=== PATIENT | male | born 1995 | race Caucasian/White ===

== ENCOUNTER 2018-07-05 11:11 | Emergency (ER) | payer OTHER ==
--- OUTSIDE RECORDS SUMMARY | 2018-07-05 11:13 | XMS REPORT | Clinical Summary ---
:1995 Author Organization [facility] Address [address] [place] [address] Care Team Providers Name Role Phone Tank Joy MD Primary Care Provider Allergies No Known Allergies Current Medications No known medications Active Problems Not on file Social History Tobacco Use Types Packs/Day Years Used Date Unknown If Ever Smoked Alcohol Use Drinks/Week oz/Week Comments Defer Sex Assigned at Date Recorded Not on file Last Filed Vital Signs Not on file Plan of Treatment Health Maintenance Due Date Last Done Comments INFLUENZA VACCINE 06/11/2018 Results Not on fileafter 07/04/2017 Insurance Payer Benefit Plan / Group Subscriber ID Type Phone Address AETNA AETNA HMO,POS,EPO, MC/EC xxxxxxxxx HMO Home: [address] [facility] [phone] [place], [place] [phone]
[2018-07-05 15:21] LABS: Urine Blood NEGATIVE (NEG); Urine Glucose NEGATIVE (NEG); Urine Protein NEGATIVE (NEG)
[2018-07-05 15:26] LABS: Absolute Lymphocytes (CBC) 1.4 K/uL (0.7-4.9); Absolute Monocytes 0.8 K/uL (0.1-1.3); Absolute Neutrophil 9.2 K/uL (1.8-8.0); Basophils % 0.4 % (0-1.3); Eosinophils % 0.9 % (0-4.4); Hematocrit 44.8 % (39.6-49.0); Lymphocytes % 11.9 % (15.3-44.8); MCH 30.1 pg (27.0-35.0); MCV 89.3 fL (80-100); MPV 8.8 fL (7.6-11.3); RBC Red Blood Cell Count 5.02 M/uL (4.33-5.43)
[2018-07-05 15:33] LABS: Protime INR 1.03
[2018-07-05 15:48] LABS: ALT/SGPT 41 U/L (12-78); AST/SGOT 23 U/L (15-37); Albumin 4.1 g/dL (3.4-5.0); Alkaline Phosphatase 76 U/L (45-117); BUN Blood Urea Nitrogen 11 mg/dL (7-18); Bicarbonate 30 mmol/L (21-32); Bilirubin Direct < 0.1 mg/dL (0-0.2); Bilirubin Total 0.3 mg/dL (0.2-1.0); CKMB Creatine Kinase MB < 1.0 ng/mL (0.3-3.6); Creatine Phosphokinase 160 U/L (39-308); Glucose Level 97 mg/dL (74-106); Magnesium 2.1 mg/dL (1.8-2.4); NT PRO-BNP 64 pg/mL (<125); Potassium 3.4 mmol/L (3.5-5.1); Protein, Total 7.8 g/dL (6.4-8.2); Sodium Level 141 mmol/L (136-145)
--- NOTE | 2018-07-05 16:14 | RAD REPORT ---
EXAM DESCRIPTION: Jc Single View07/05/2018 3:45 pm CLINICAL HISTORY: Chest pain COMPARISON: 2012 FINDINGS: The lungs appear clear of acute infiltrate. A 10 millimeter lingular nodule is unchanged. The heart is normal size IMPRESSION: No acute abnormalities displayed
[2018-07-05] MEDS ORDERED: KETOROLAC 30 MG/ML INJ ONE (17:01)
[2018-07-05] MEDS ORDERED: MAGNE/ALUM HYDROXD 30 ML UCUP ONE (17:17)
[2018-07-05] MEDS ORDERED: LIDOCAINE VISCOUS 2% SOLN 15 ML UDC ONE (17:17)
--- NOTE | 2018-07-05 17:34 | ER ---
Nurse's Notes [facility] Name: Farhat Ward Age: 22 yrs Sex: Male : 1995 Arrival Date: 07/05/2018 Time: 11:15 Bed 20 Private MD: Tank Joy Diagnosis: Pericarditis in diseases classified elsewhere Presentation: 07/05 11:20 Presenting complaint: Patient states: "since I woke up this morning, I've been having ss chest pain.". Transition of care: patient was not received from another setting of care. Onset of symptoms was July 05, 2018. Risk Assessment: Do you want to hurt yourself or someone else? Patient reports no desire to harm self or others. Initial Sepsis Screen: Does the patient meet any 2 criteria? No. Patient's initial sepsis screen is negative. Does the patient have a suspected source of infection? No. Patient's initial sepsis screen is negative. Note chest pain is worse when taking a deep breath. Care prior to arrival: None. 11:20 Method Of Arrival: Ambulatory ss 11:20 Acuity: XAVIER 3 ss Historical: - Allergies: 11:21 No Known Allergies; ss - Home Meds: 11:21 pantoprazole Oral [Active]; ss - PMHx: 11:21 GERD; ss - PSHx: 11:21 None; ss - Immunization history:: Adult Immunizations up to date. - Social history:: Smoking status: Patient uses tobacco products, chewing tobacco. - Ebola Screening: : Patient denies exposure to infectious person Patient denies travel to an Ebola-affected area in the 21 days before illness onset. Screenin:35 Abuse screen: Denies threats or abuse. Nutritional screening: No deficits noted. rb1 Tuberculosis screening: No symptoms or risk factors identified. Fall Risk None identified. Assessment: 14:35 General: Appears in no apparent distress. comfortable, Behavior is calm, cooperative, rb1 Denies fever. Pain: Complains of pain in chest Pain radiates to back Pain currently is 8 out of 10 on a pain scale. Pain began 0230 this morning. Neuro: Level of Consciousness is awake, alert, obeys commands, Oriented to person, place, time, situation. Cardiovascular: Capillary refill < 3 seconds is brisk in bilateral fingers Rhythm is sinus rhythm. Respiratory: Airway is patent Respiratory effort is even, unlabored, Respiratory pattern is regular, symmetrical. GI: No signs and/or symptoms were reported involving the gastrointestinal system. : No signs and/or symptoms were reported regarding the genitourinary system. Derm: Skin is pink, warm \\T\\ dry. 15:35 Reassessment: Patient appears in no apparent distress at this time. No changes from rb1 previously documented assessment. 16:35 Reassessment: Patient appears in no apparent distress at this time. Patient and/or rb1 family updated on plan of care and expected duration. Pain level reassessed. Patient is alert, oriented x 3, equal unlabored respirations, skin warm/dry/pink. Pt. is watching TV. Call light within reach. 17:30 Reassessment: Patient appears in no apparent distress at this time. No changes from rb1 previously documented assessment. Vital Signs: 11:21 BP 147 / 88; Pulse 93; Resp 15; Temp 98.4(O); Pulse Ox 99% on R/A; Weight 99.79 kg; ss Height 6 ft. 3 in. (190.50 cm); Pain 8/10; 14:38 BP 129 / 75; Pulse 86; Resp 20; Pulse Ox 100% on R/A; Pain 8/10; rb1 15:37 BP 131 / 61; Pulse 90; Resp 20; Pulse Ox 100% on R/A; rb1 16:35 BP 122 / 63; Pulse 87; Resp 15; Pulse Ox 100% on R/A; rb1 17:35 BP 110 / 59; Pulse 88; Resp 17; Pulse Ox 100% on R/A; Pain 5/10; rb1 11:21 Body Mass Index 27.50 (99.79 kg, 190.50 cm) ED Course: 11:15 Patient arrived in ED. sb2 11:15 Tank Joy MD is Private Physician. sb2 11:21 Triage completed. ss 11:21 Arm band placed on right wrist. ss 11:26 EKG done, by ED staff. jp3 14:30 Milton Dickson PA is PHCP. jmm 14:30 Merlin Argueta MD is Attending Physician. m 14:32 Adwoa Morris, RN is Primary Nurse. rb1 14:35 Patient has correct armband on for positive identification. Placed in gown. Bed in low rb1 position. Call light in reach. Side rails up X 1. cream dumper on. Pulse ox on. NIBP on. 14:35 Patient maintains SpO2 saturation greater than 95% on room air. rb1 14:47 Inserted saline lock: 20 gauge in right antecubital area, using aseptic technique. 3 Blood collected. 15:15 Initial lab(s) drawn, by ri, sent to lab. [facility] 15:45 XRAY Chest (1 view) In Process Unspecified. EDMS 17:32 Howard Hamilton MD is Referral Physician. [facility] 17:59 No provider procedures requiring assistance completed. IV discontinued, intact, rb1 bleeding controlled, No redness/swelling at site. Pressure dressing applied. Administered Medications: 16:50 Drug: GI Cocktail without - (Maalox Suspension 30 ml, Lidocaine Liquid 2 % 15 rb1 ml) Route: PO; 17:15 Follow up: Response: No adverse reaction; Pain is decreased rb1 17:44 Drug: Ketorolac 30 mg Route: IVP; Site: right antecubital; rb1 18:00 Follow up: Response: No adverse reaction; Pain is decreased [facility] Outcome: 17:33 Discharge ordered by . [facility] 17:59 Patient left the ED. rb1 17:59 Discharged to home ambulatory. rb1 17:59 Condition: stable 17:59 Discharge instructions given to patient, Instructed on discharge instructions, follow up and referral plans. medication usage, Demonstrated understanding of instructions, follow-up care, medications, Prescriptions given X 1. Signatures: Dispatcher [employer] EDMS Milton Dickson PA PA jmm Smirch, Shelby, RN RN Adwoa Morris, RN RN [facility] Airam Sampson 3 Hailey Castillo2 Lamont Rahman 3
--- NOTE | 2018-07-05 17:34 | EDPHYS ---
Physician Documentation [facility] Name: Farhat Ward Age: 22 yrs Sex: Male : 1995 Arrival Date: 07/05/2018 Time: 11:15 Bed 20 Private MD: Tank Joy ED Physician Merlin Argueta HPI: 07/05 15:03 This 22 yrs old Male presents to ER via Ambulatory with complaints of Chest jmm Pain. 15:03 The patient or guardian reports chest pain that is located primarily in the substernal jmm area. The pain radiates to across chest. Associated signs and symptoms: Pertinent negatives: shortness of breath. The chest pain is described as sharp. Duration: The patient or guardian reports a single episode, that is still ongoing. This is a 22 year old male with a history of GERD that presents to the ED with substernal chest pain described as sharp. Symptoms began at approx 0200 which awoke him from sleep. Pain has been constant. Patient denies recent fever, cough, or congestion. Patient denies recreational drug use, denies recent travel, surgery, leg swelling hemoptysis, unilateral leg swelling, hx of cancer or PE/DVT. . Historical: - Allergies: 11:21 No Known Allergies; ss - Home Meds: 11:21 pantoprazole Oral [Active]; ss - PMHx: 11:21 GERD; ss - PSHx: 11:21 None; ss - Immunization history:: Adult Immunizations up to date. - Social history:: Smoking status: Patient uses tobacco products, chewing tobacco. - Ebola Screening: : Patient denies exposure to infectious person Patient denies travel to an Ebola-affected area in the 21 days before illness onset. ROS: 15:03 Constitutional: Negative for fever, chills, and weight loss. jmm 15:03 Respiratory: Negative for shortness of breath, cough, wheezing, and pleuritic chest pain, Abdomen/GI: Negative for abdominal pain, nausea, vomiting, diarrhea, and constipation, MS/Extremity: Negative for injury and deformity, Skin: Negative for injury, rash, and discoloration, Neuro: Negative for headache, weakness, numbness, tingling, and seizure. 15:03 Cardiovascular: Positive for chest pain. 15:03 All other systems are negative. Exam: 15:03 Head/Face: atraumatic. jmm 15:03 Constitutional: The patient appears in no acute distress, alert, awake. 15:03 Chest/axilla: Inspection: normal, Palpation: is normal. 15:03 Cardiovascular: Rate: normal, Rhythm: regular, Pulses: no pulse deficits are appreciated. 15:03 Respiratory: the patient does not display signs of respiratory distress, Respirations: normal, Breath sounds: are clear throughout. 15:03 Abdomen/GI: Inspection: abdomen appears normal, Bowel sounds: normal, Palpation: abdomen is soft and non-tender, in all quadrants. 15:03 Musculoskeletal/extremity: ROM: intact in all extremities. 15:03 Skin: Appearance: Color: normal in color. 15:03 Neuro: Orientation: is normal, Mentation: is normal, Memory: is normal. 15:03 Psych: Behavior/mood is pleasant, cooperative. 15:03 ECG was reviewed by the Attending Physician. [facility] Vital Signs: 11:21 BP 147 / 88; Pulse 93; Resp 15; Temp 98.4(O); Pulse Ox 99% on R/A; Weight 99.79 kg; ss Height 6 ft. 3 in. (190.50 cm); Pain 8/10; 14:38 BP 129 / 75; Pulse 86; Resp 20; Pulse Ox 100% on R/A; Pain 8/10; rb1 15:37 BP 131 / 61; Pulse 90; Resp 20; Pulse Ox 100% on R/A; rb1 16:35 BP 122 / 63; Pulse 87; Resp 15; Pulse Ox 100% on R/A; rb1 17:35 BP 110 / 59; Pulse 88; Resp 17; Pulse Ox 100% on R/A; Pain 5/10; rb1 11:21 Body Mass Index 27.50 (99.79 kg, 190.50 cm) MDM: 15:04 Patient medically screened. [facility] 17:31 Data reviewed: vital signs, nurses notes, lab test result(s), EKG, radiologic studies, [facility] plain films. Counseling: I had a detailed discussion with the patient and/or guardian regarding: the historical points, exam findings, and any diagnostic results supporting the discharge/admit diagnosis, radiology results, the need for outpatient follow up, to return to the emergency department if symptoms worsen or persist or if there are any questions or concerns that arise at home. ED course: Dr. Argueta performed bedside US which did not reveal signs of fluid around the pericardium. Patient will be put on antiinflammatories due to concerns for pericarditis. patient given strict return precautions. Patient understood and agrees with the plan of care.. 18:49 THERESA Risk Score: TOTAL SCORE = 1. [facility] 07/05 15:04 Order name: Basic Metabolic Panel; Complete Time: 16:00 [facility] 07/05 15:04 Order name: CBC with Diff; Complete Time: 15:35 [facility] 07/05 15:04 Order name: Ckmb; Complete Time: 16:00 [facility] 07/05 15:04 Order name: CPK; Complete Time: 16:00 [facility] 07/05 15:04 Order name: LFT's; Complete Time: 16:00 [facility] 07/05 15:04 Order name: Magnesium; Complete Time: 16: [facility] 07/05 15:04 Order name: NT PRO-BNP; Complete Time: 16:00 [facility] 07/05 15:04 Order name: PT-INR; Complete Time: 16: [facility] 07/05 15:04 Order name: Ptt, Activated; Complete Time: 16: [facility] 07/05 15:04 Order name: Troponin (emerg Dept Use Only); Complete Time: 16:00 [facility] 07/05 15:04 Order name: XRAY Chest (1 view); Complete Time: 16:16 [facility] 07/05 15:04 Order name: EKG; Complete Time: 15:05 [facility] 07/05 15:04 Order name: Cardiac monitoring; Complete Time: 15:46 [facility] 07/05 15:04 Order name: EKG - Nurse/Tech; Complete Time: 15:49 [facility] 07/05 15:04 Order name: IV Saline Lock; Complete Time: 15:46 [facility] 07/05 15:04 Order name: Labs collected and sent; Complete Time: 15:46 [facility] 07/05 15:04 Order name: O2 Per Protocol; Complete Time: 15:46 [facility] 07/05 15:04 Order name: O2 Sat Monitoring; Complete Time: 15:46 [facility] 07/05 15:04 Order name: Urine Dipstick-Ancillary (obtain specimen); Complete Time: 16:40 jmm EC:03 Rate is 87 beats/min. Rhythm is regular. QRS [place] is Normal. CO interval is shortened [facility] at 108 msec. QRS interval is normal. QT interval is normal. No Q waves. ST Segment is elevated in leads II, aVF, V5, <1mm. Administered Medications: 16:50 Drug: GI Cocktail without - (Maalox Suspension 30 ml, Lidocaine Liquid 2 % 15 rb1 ml) Route: PO; 17:15 Follow up: Response: No adverse reaction; Pain is decreased rb1 17:44 Drug: Ketorolac 30 mg Route: IVP; Site: right antecubital; rb1 18:00 Follow up: Response: No adverse reaction; Pain is decreased rb1 Disposition: 07/05/18 17:33 Discharged to Home. Impression: Pericarditis in diseases classified elsewhere. - Condition is Stable. - Discharge Instructions: Pericarditis. - Prescriptions for indomethacin 50 mg Oral capsule - take 1 capsule by ORAL route 3 times per day for 7 days; 30 capsule. - Medication Reconciliation Form, Thank You Letter, Antibiotic Education, Prescription Opioid Use form. - Follow up: Howard Hamilton MD; When: 1 - 2 days; Reason: Recheck today's complaints, Continuance of care, Re-evaluation by your physician. - Notes: Please follow up with cardiology for further evaluation. Please return to the ED if you develop increased pain, shortness of breath, or fever. Addendum: 07/07/2018 11:25 Co-signature as Attending Physician, Merlin Argueta MD I agree with the assessment and w a plan of care. Signatures: Dispatcher [employer] [facility] Milton Dickson PA PA [facility] Irma French RN RN Adwoa Morris, WILLIS RN Merlin Ying MD MD wa Corrections: (The following items were deleted from the chart) 07/05 15:26 15:06 URINE DIPSTICK--ANCILLARY+U.LAB.BRZ ordered. [facility] EDMO 15:26 15:06 URINE --ANCILLARY+UC.LAB.BRZ ordered. [facility] 15:26 15:25 URINE DIPSTICK--ANCILLARY+U.LAB.BRZ reviewed. [facility] 15:26 15:25 URINE --ANCILLARY+UC.LAB.BRZ reviewed. [facility] 17:59 17:33 07/05/2018 17:33 Discharged to Home. Impression: Pericarditis in diseases rb1 classified elsewhere. Condition is Stable. Forms are Medication Reconciliation Form, Thank You Letter, Antibiotic Education, Prescription Opioid Use. Follow up: Howard Hamilton; When: 1 - 2 days; Reason: Recheck today's complaints, Continuance of care, Re-evaluation by your physician. cinthya
[2018-07-05 18:16] VITALS: TEMP 98.4
[2018-07-05 18:17] VITALS: O2SAT 100
[2018-07-05 18:18] VITALS: BP 131/61
--- NOTE | 2018-07-06 06:31 | EKG ---
Test Date: 2018-07-05 Test Time: 11:26:13 Packaging Design Engineer: DARLENE MEASUREMENT RESULTS: Intervals: Rate: 87 AL: 108 QRSD: 104 QT: 360 QTc: 433 [place]: P: 64 AL: 108 QRS: 77 T: 39 INTERPRETIVE STATEMENTS: Sinus rhythm with sinus arrhythmia with short AL Otherwise normal ECG Compared to ECG 01/29/2014 23:21:23 Short AL interval now present Electronically Signed On 07-06-18 06:30:27 CDT by Howard Hamilton
== END 2018-07-05 17:59 | disposition home or self-care (01) ==
LOC: ER 11:11
DX: I31.9 Disease of pericardium, unspecified (principal); R07.9 Chest pain, unspecified; F17.220 Nicotine dependence, chewing tobacco, uncomplicated; K21.9 Gastro-esophageal reflux disease without esophagitis
CPT/HCPCS: 36415; 71045; 80048; 80076; 81003; 82550; 82553; 83735; 83880; 84484; 85025; 85610; 85730; 93005; 96374; 99285